=== PATIENT | male | born 1955 | race Caucasian/White ===

== ENCOUNTER 2023-09-30 07:00 | Outpatient (NON) | payer MEDICARE, SELFPAY | END 2023-09-30 07:01 | disposition home or self-care (01) | LOC: ANHLAB 10-01 07:35 | PROVIDERS: PCP Family Medicine; Visit Provider Internal Medicine Gastroenterology | DX: Z86.010 Personal history of colon polyps (principal) | CPT/HCPCS: 88305 ==

== ENCOUNTER 2023-09-30 08:11 | Day surgery (SDC) | payer MEDICARE, SELFPAY ==
[2023-09-17 08:34] VITALS: BMI 27.8
[2023-09-23 08:07] VITALS: BMI 27.5
--- NOTE | 2023-09-29 12:44 | WPDANESEPPF ---
Anes - Initial Pre Proc Eval Procedure: Operation Date: 09/30/23 10:00 Proposed Procedures p Diagnostic Colonoscopy - Angel Cummins MD Date/Time: 09/29/23 12:44 Surgeon: Angel Cummins MD Pre Op Diagnosis: Personal History of Colon Polyps Patient Data Age: 68 Gender: M Height: 1.7 m Weight: 79.8 kg Allergies Allergy/AdvReac Type Severity Reaction Status Date / Time No Known Allergies Allergy Verified 08/23/23 10:03 Home Medications Medication Instructions Recorded Confirmed Type omeprazole 20 mg capsule,delayed 20 mg PO DAILY PRN Indigestion 02/06/20 09/23/23 History release atorvastatin 10 mg tablet 10 mg PO DAILY #90 tabs 08/23/23 09/23/23 Rx sodium,potassium,mag sulfates 17.5 See Rx Instructions PO .COMPLEX 09/17/23 Rx gram-3.13 gram-1.6 gram oral soln #354 mL (Suprep Bowel Prep Kit) Lactobacillus 1 cap PO DAILY 09/23/23 09/23/23 History acidophilus-Bifidobac.animalis 2.5 billion cell capsule (Daily Probiotic) Patient hx anesthesia problems: none Family hx anesthesia problems: none Results Review: All pre-operative results and documents have been reviewed as part of the pre-operative evaluation. [facility] Past Medical History Medical History Fasciitis (~04/2009) left heel GERD (gastroesophageal reflux disease) History of prostate cancer Mixed hyperlipidemia Sciatica Sebaceous cyst (~08/2015) scalp Smoker Surgical History Surgical History History of esophagogastroduodenoscopy (~08/2006) MD [facility] History of hemorrhoidectomy History of prostatectomy History of removal of cyst (~08/2015) scalp Hx of colonoscopy 1997 & 04/03/2010 & 04/29/2017-MD [facility] & Family History Family History Other Cancer Cerebrovascular accident Heart attack Heart disease Lung cancer Social History Social History Smoking status: Current some day smoker Tobacco type: smokeless tobacco Second hand tobacco smoke exposure: No Additional smoking assessment comments: Father smoked around him during childhood Alcohol intake: current Drinks per week: 3 Alcohol use details: consume 3-4 beers occasionally Substance use: never Substance use type: does not use Living arrangements: with family Gender identity (if verbalized by the patient): Male Spiritual care concerns: No Anes - Eval Final PreProcedure Day of Procedure 09/29/23 12:44 Patient weight: overweight Results Review: All pre-operative results and documents have been reviewed as part of the pre-operative evaluation. Informed Consent: The patient's anesthetic plan and its attendant risks and benefits were discussed with the patient/family/POA. Questions were solicited and answers provided to the satisfaction of the patient/family/POA.
[2023-09-30 09:18] VITALS: BP 127/92; PULSE 67; RESP 18; TEMP 36.3; O2SAT 99; BMI 26.6
[2023-09-30] MEDS: LACTATED RINGERS 1,000 ML 150 ML IV CONT (09:26)
--- NOTE | 2023-09-30 09:53 | PM.HPGS ---
History of Present Illness History of Present Illness Consent: Risks, benefits, and alternatives have been discussed and questions answered. Patient agrees to proceed with procedure. Chief complaint: Personal History of Colon Polyps Narrative: Sreedhar Fair is a 68 year old male referred for colonoscopy. Patient has a history of adenomatous colon polyps in the past. Most recently 2019. He reports is that his current weight appetite and bowel movements are normal. Patient denies abdominal pain. He has had no bleeding. Family history is significant that his son was found to have colon polyps. Review of Systems Review of Systems: All systems reviewed & are unremarkable except as noted in HPI and below PMFSH Past Medical History Medical History Fasciitis (~04/2009) left heel GERD (gastroesophageal reflux disease) History of prostate cancer Mixed hyperlipidemia Sciatica Sebaceous cyst (~08/2015) scalp Smoker Surgical History Surgical History History of esophagogastroduodenoscopy (~08/2006) MD Yara History of hemorrhoidectomy History of prostatectomy History of removal of cyst (~08/2015) scalp Hx of colonoscopy 1997 & 04/03/2010 & 04/29/2017-MD [facility] & Family History Family History Other Cancer Cerebrovascular accident Heart attack Heart disease Lung cancer Social History Social History Smoking status: Current some day smoker Tobacco type: smokeless tobacco Second hand tobacco smoke exposure: No Additional smoking assessment comments: Father smoked around him during childhood Alcohol intake: current Drinks per week: 3 Alcohol use details: consume 3-4 beers occasionally Substance use: never Substance use type: does not use Living arrangements: with family Gender identity (if verbalized by the patient): Male Spiritual care concerns: No Meds Home Medications and Allergies Home Medications Medication Instructions Recorded Confirmed Type omeprazole 20 mg capsule,delayed 20 mg PO DAILY PRN Indigestion 02/06/20 09/30/23 History release atorvastatin 10 mg tablet 10 mg PO DAILY #90 tabs 08/23/23 09/30/23 Rx Lactobacillus 1 cap PO DAILY 09/23/23 09/30/23 History acidophilus-Bifidobac.animalis 2.5 billion cell capsule (Daily Probiotic) Allergies Allergy/AdvReac Type Severity Reaction Status Date / Time No Known Allergies Allergy Verified 09/30/23 09:03 Vital Signs Vital Signs - 24 hr 09/30/23 09:18 Temperature 97.3 F L Pulse Rate 67 Respiratory Rate 18 Blood Pressure 127/92 H Pulse Oximetry 99 Oxygen Delivery Room Air Exam Narrative: Physical exam reveals patient to be alert. Signs stable. HEENT exam is unremarkable. Patient is an are clear to auscultation and percussion. Heart is without murmur or extra sounds. Bowel sounds are present soft nontender with no organomegaly. digital external rectal exam normal. Assessment and Plan Assessment and plan (1) History of colon polyps: Code(s): Z86.010 - Personal history of colonic polyps Status: Acute Assessment and Plan: Is a history of colon polyps on several occasions in the past. He had patient presents today for follow-up surveillance colonoscopy.
--- NOTE | 2023-09-30 10:02 | WPDANESEPPF ---
Anes - Initial Pre Proc Eval Procedure: Operation Date: 09/30/23 10:00 Proposed Procedures p Diagnostic Colonoscopy - Angel Cummins MD Date/Time: 09/30/23 10:02 Surgeon: Angel Cummins MD Pre Op Diagnosis: Personal History of Colon Polyps Patient Data Age: 68 Gender: M Height: 1.7 m Weight: 77.2 kg Last Vital Signs Temp 36.3 C L 09/30/23 09:18 Pulse 67 09/30/23 09:18 Resp 18 09/30/23 09:18 BP 127/92 H 09/30/23 09:18 Pulse Ox 99 09/30/23 09:18 O2 Del Method Room Air 09/30/23 09:18 Allergies Allergy/AdvReac Type Severity Reaction Status Date / Time No Known Allergies Allergy Verified 09/30/23 09:03 Home Medications Medication Instructions Recorded Confirmed Type omeprazole 20 mg capsule,delayed 20 mg PO DAILY PRN Indigestion 02/06/20 09/30/23 History release atorvastatin 10 mg tablet 10 mg PO DAILY #90 tabs 08/23/23 09/30/23 Rx Lactobacillus 1 cap PO DAILY 09/23/23 09/30/23 History acidophilus-Bifidobac.animalis 2.5 billion cell capsule (Daily Probiotic) Patient hx anesthesia problems: none Family hx anesthesia problems: none Results Review: All pre-operative results and documents have been reviewed as part of the pre-operative evaluation. [facility] Past Medical History Medical History Fasciitis (~04/2009) left heel GERD (gastroesophageal reflux disease) History of prostate cancer Mixed hyperlipidemia Sciatica Sebaceous cyst (~08/2015) scalp Smoker Surgical History Surgical History History of esophagogastroduodenoscopy (~08/2006) MD Yara History of hemorrhoidectomy History of prostatectomy History of removal of cyst (~08/2015) scalp Hx of colonoscopy 1997 & 04/03/2010 & 04/29/2017-MD [facility] & Family History Family History Other Cancer Cerebrovascular accident Heart attack Heart disease Lung cancer Social History Social History Smoking status: Current some day smoker Tobacco type: smokeless tobacco Second hand tobacco smoke exposure: No Additional smoking assessment comments: Father smoked around him during childhood Alcohol intake: current Drinks per week: 3 Alcohol use details: consume 3-4 beers occasionally Substance use: never Substance use type: does not use Living arrangements: with family Gender identity (if verbalized by the patient): Male Spiritual care concerns: No Anes - Eval Final PreProcedure Day of Procedure 09/30/23 10:02 Patient weight: overweight Heart: regular rate and rhythm Lungs: clear to auscultation Airway: Mallampati scale class II Neurological: alert and oriented Last oral intake: >/= 8 hours ASA classification: III Emergent: no Anesthetic plan: proceed Anesthesia type and monitoring: general GIVS and standard monitoring Results Review: All pre-operative results and documents have been reviewed as part of the pre-operative evaluation. Informed Consent: The patient's anesthetic plan and its attendant risks and benefits were discussed with the patient/family/POA. Questions were solicited and answers provided to the satisfaction of the patient/family/POA.
[2023-09-30 10:25] VITALS: BP 129/83; PULSE 65; RESP 18; O2SAT 99
[2023-09-30 10:35] VITALS: BP 129/84; PULSE 64; RESP 18; O2SAT 99
--- NOTE | 2023-09-30 10:38 | WPDANESPN ---
Anes - Prog Note Post-Op Date/Time: 09/30/23 10:38 Cardiovascular status: normal Respiratory status: normal Airway patency: baseline Mental status: baseline Post-Op hydration status: normal Vital Signs: Last Vital Signs Temp 36.3 C L 09/30/23 09:18 Pulse 65 09/30/23 10:25 Resp 18 09/30/23 10:25 BP 129/83 09/30/23 10:25 Pulse Ox 99 09/30/23 10:25 O2 Del Method Room Air 09/30/23 10:25 Pain Score (VAS): 0/10 I/O: Intake & Output 09/29/23 09/30/23 09/30/23 23:59 07:59 15:59 Intake Total 800 Balance 800 Patient Feedback: Patient satisfied with anesthetic care.
[2023-09-30 10:45] VITALS: BP 129/84; PULSE 70; RESP 18; O2SAT 99
== END 2023-09-30 11:00 | disposition home or self-care (01) ==
PROVIDERS: PCP Family Medicine; Visit Provider Internal Medicine Gastroenterology
PROC: 0DJD8ZZ Inspection of Lower Intestinal Tract, Via Natural or Artificial Opening Endoscopic (ICD-10-PCS; CPT 45378; principal; 2023-09-30 10:00)
DX: Z86.010 Personal history of colon polyps (principal); D12.5 Benign neoplasm of sigmoid colon; K52.9 Noninfective gastroenteritis and colitis, unspecified; K64.8 Other hemorrhoids
CPT/HCPCS: 45380